=== PATIENT | female | born 1955 | race Caucasian/White ===

== ENCOUNTER 2017-03-14 10:21 | Day surgery (SDC) | payer BC ==
[~2017-03-14] VITALS: Ht 162.6 cm; Wt 89.0 kg
[2017-03-14 10:57] VITALS: Ht 162.6 cm; Wt 89.0 kg
[2017-03-14] MEDS ORDERED: ASPI81TA3 PO (11:26)
[2017-03-14] MEDS ORDERED: TRAMADOL (11:28)
[2017-03-14] MEDS ORDERED: [UNRECOGNIZED DRUG - OTHER] (11:28)
[2017-03-14] MEDS ORDERED: ATEN50TA PO (11:28)
[2017-03-14] MEDS ORDERED: [UNRECOGNIZED DRUG - OTHER] (11:28)
[2017-03-14] MEDS ORDERED: PEPCID DAILY (11:28)
[2017-03-14] MEDS ORDERED: PROPOFOL 20 ML ONE (11:32)
[2017-03-14 11:35] VITALS: BP 133/80; PULSE 70; RESP 18
--- NOTE | 2017-03-14 11:47 | OPPN ---
Date/Time of Note Date/Time of Note DATE: 03/14/17 TIME: 11:46 Proc Note GI Procedure Date 03/14/17 Pre-procedure Diagnosis Dysphagia Post-procedure Diagnosis Dysphagia Procedure Performed: Endoscopy Surgeon see signature line Furnace Caretaker none Anesthesia Type: MAC Tourniquet Time none EBL none Transfusion required none Grafts/Implants none Tubes/Drains none Complication(s) none Disposition: PACU, home Indications: other (Dysphagia) Operative\Procedure Findings EGD with a biopsy Procedure Description EGD with a 4 biopsies for H. pylori infection JAYDON CACERES MD Mar 14, 2017 11:47
[2017-03-14 12:14] VITALS: BP 141/71; PULSE 56; RESP 18
--- NOTE | 2017-03-14 12:21 | GILP ---
DATE OF PROCEDURE: 03/14/2017 INDICATION: A 61-year-old female undergoing this procedure for dysphagia for last one year. The purpose is to evaluate the upper GI tract and find out the cause of her dysphagia. The risks of the procedure, related complications, anesthetic risks and alternatives discussed. Informed consent was obtained. DESCRIPTION OF PROCEDURE: Patient was brought to the GI lab, sedated by the anesthesiologist. After optimal sedation, scope was passed with much ease into the esophagus, which was grossly within normal limits. Z-line was at 35 cm. The Z-line was regular. Stomach mucosa revealed gastritis. Four biopsies obtained randomly to rule out H pylori infection. Duodenum, 1st and 2nd part was within normal limits. Retroversion in the stomach was normal. Scope was straightened out and removed with good patient tolerance. IMPRESSION: 1. Normal esophagus. 2. Normal Z-line at 35 cm. 3. Gastritis. 4. Normal duodenum. PLAN: Review histopathology. Patient's thyroid function needs to be checked for dysphagia and she should be reassured. Dictated By: Segun Gay MD /marco/pari /Document#: [id number]
== END 2017-03-14 15:33 | disposition home or self-care (01) ==
LOC: GIL 10:21
PROVIDERS: ATTEND Internal Medicine Gastroenterology
DX: R13.10 Dysphagia, unspecified (principal); K29.70 Gastritis, unspecified, without bleeding
CPT/HCPCS: 43239; 88305; 88312; Z7610

== ENCOUNTER 2018-10-22 10:56 | Emergency (ER) | payer BC ==
[~2018-10-22] VITALS: Ht 162.6 cm; Wt 87.0 kg
[~2018-10-22 10:56] MED LIST: ASPI-903 PO; ATEN50TA PO; PEPCID DAILY; TRAMADOL; [UNRECOGNIZED DRUG - OTHER]; [UNRECOGNIZED DRUG - OTHER]
[2018-10-22 11:02] VITALS: Ht 162.6 cm; Wt 87.0 kg
[2018-10-22] MEDS ORDERED: MECL-77 PO (16:53)
[2018-10-22] MEDS ORDERED: ERGO500013 PO (16:53)
[2018-10-22] MEDS ORDERED: DILT-8 PO (16:54)
[2018-10-22] MEDS ORDERED: FURO40TA4 PO (16:54)
[2018-10-22] MEDS ORDERED: ASPI-817 PO (16:55)
[2018-10-22] MEDS ORDERED: GABA100C14 PO (16:55)
[2018-10-22] MEDS ORDERED: ZOLP10TA5 PO (16:55)
[2018-10-22] MEDS ORDERED: CARV6.2579 PO (16:56)
[2018-10-22] MEDS ORDERED: LOSA100T15 PO (16:56)
[2018-10-22] MEDS ORDERED: LORA-444 PO (16:57)
[2018-10-22] MEDS ORDERED: OMEP20CA16 PO (16:57)
[2018-10-22] MEDS ORDERED: CLON-379 PO (16:58)
[2018-10-22] MEDS ORDERED: PARO40TA79 PO (16:58)
--- NOTE | 2018-10-22 17:08 | ERD ---
ER Documentation Chief Complaint Chief Complaint swallowing problem x [address] aguirre for admission HPI Patient is a 63-year-old female who presents with difficulty swallowing. The patient was sent by Dr. Cruz for admission. The patient has had trouble swallowing for 2 months. She said that she cannot breathe well at night when she lays down. She had an endoscopy here at [place] [address]. She is n ot able to swallow food or liquids she says. Upon review of old medical records this is the patient's first visit to the emergency department. Her primary doctor is Dr. Cruz. ROS All systems reviewed and are negative except as per history of present illness. Medications Home Meds Reported Medications Clonidine Hcl* (Clonidine Hcl*) 0.1 Mg Tab, 0.1 MG PO NEEDED, TAB 10/22/18 Paroxetine Hcl* (Paroxetine*) 40 Mg Tablet, 40 MG PO HS, TAB 10/22/18 Omeprazole* (Omeprazole*) 20 Mg Capsule.dr, 20 MG PO DAILY, #30 CAP 10/22/18 Lorazepam* (Ativan*) 2 Mg Tablet, 2 MG PO BID PRN for ANXIETY, #30 TAB 10/22/18 Losartan Potassium* (Losartan Potassium*) 100 Mg Tablet, 100 MG PO DAILY, TAB 10/22/18 Carvedilol* (Carvedilol*) 6.25 Mg Tablet, 6.25 MG PO BID, #60 TAB 10/22/18 Gabapentin* (Gabapentin*) 100 Mg Capsule, 100 MG PO BID, #90 CAP 10/22/18 Zolpidem Tartrate* (Zolpidem Tartrate*) 10 Mg Tablet, 10 MG PO QHS PRN for INSOMNIA, #30 TAB 10/22/18 Aspirin* (Aspirin* EC) 81 Mg Tablet.dr, 81 MG PO DAILY, TAB 10/22/18 Diltiazem Hcl (Cardozem Cd) 240 Mg Capsr, 240 MG PO DAILY, CAP 10/22/18 Furosemide* (Furosemide*) 40 Mg Tablet, 40 MG PO DAILY, TAB 10/22/18 Meclizine Hcl* (Meclizine Hcl*) 25 Mg Tablet, 25 MG PO DAILY PRN for DIZZINESS, TAB 10/22/18 Ergocalciferol (Vitamin D2) (VITAMIN D2) 50,000 Unit Capsule, 84780 UNIT PO Q THUR, CAP 10/22/18 Discontinued Reported Medications [Tramadol Daily] No Conflict Check 03/14/17 [Pepcid Daily] No Conflict Check 03/14/17 [Medlavin] No Conflict Check 03/14/17 [Diovan Daily] No Conflict Check 03/14/17 Atenolol* (Atenolol*) 50 Mg Tablet, 50 MG PO DAILY, #30 TAB 03/14/17 Aspirin* (Aspirin* Chew) 81 Mg Tab.chew, 81 MG PO DAILY, TAB.CHEW 03/14/17 Allergies Allergies: Coded Allergies: No Known Drug Allergies (Verified Allergy, Unknown, 10/22/18) PMhx/Soc History of Surgery: Yes (EYE SX.) Anesthesia Reaction: No Hx Neurological Disorder: No Hx Respiratory Disorders: No Hx Cardiac Disorders: Yes (HTN) Hx Psychiatric Problems: No Hx Miscellaneous Medical Probl: No Hx Alcohol Use: No Hx Substance Use: No Hx Tobacco Use: No Smoking Status: Never smoker FmHx Family History: No diabetes Physical Exam Vitals Vital Signs Date Temp Pulse Resp B/P (MAP) Pulse Ox O2 O2 Flow FiO2 Time Delivery Rate 10/22/18 98.2 68 18 166/82 97 11:02 (110) Physical Exam Const: No acute distress Head: Atraumatic Eyes: Normal Conjunctiva ENT: Normal External Ears, Nose and Mouth. Neck: Full range of motion. No meningismus. No stridor Resp: Clear to auscultation bilaterally Cardio: Regular rate and rhythm, no murmurs Abd: Soft, non tender, non distended. Normal bowel sounds Skin: No petechiae or rashes Back: No midline or flank tenderness Ext: No cyanosis, or edema Neur: Awake and alert Psych: Anxious Result Diagram: 10/22/18 1559 10/22/18 1559 Results 24 hrs Laboratory Tests Test 10/22/18 15:53 10/22/18 15:59 Bedside Glucose 90 mg/dL White Blood Count 7.1 10^3/ul Red Blood Count 4.71 10^6/ul Hemoglobin 13.1 g/dl Hematocrit 40.7 % Mean Corpuscular Volume 86.4 fl Mean Corpuscular Hemoglobin 27.8 pg Mean Corpuscular Hemoglobin Concent 32.2 g/dl Red Cell Distribution Width 12.9 % Platelet Count 219 10^3/UL Mean Platelet Volume 11.3 fl Immature Granulocytes % 0.100 % Neutrophils % 65.8 % Lymphocytes % 26.1 % Monocytes % 6.9 % Eosinophils % 0.8 % Basophils % 0.3 % Nucleated Red Blood Cells % 0.0 /100WBC Immature Granulocytes # 0.010 10^3/ul Neutrophils # 4.7 10^3/ul Lymphocytes # 1.9 10^3/ul Monocytes # 0.5 10^3/ul Eosinophils # 0.1 10^3/ul Basophils # 0.0 10^3/ul Nucleated Red Blood Cells # 0.0 10^3/ul Prothrombin Time 12.5 Sec Prothrombin Time Ratio 1.0 INR International Normalized Ratio 0.92 Activated Partial Thromboplast Time 27.2 Sec Sodium Level 143 mmol/L Potassium Level 3.7 mmol/L Chloride Level 105 mmol/L Carbon Dioxide Level 32 mmol/L Anion Gap 6 Blood Urea Nitrogen 11 mg/dl Creatinine 0.56 mg/dl Est Glomerular Filtrat Rate mL/min > 60 mL/min Glucose Level 93 mg/dl Calcium Level 9.5 mg/dl Troponin I < 0.012 ng/ml Triglycerides Level 146 mg/dl Cholesterol Level 201 mg/dl LDL Cholesterol, Calculated 124 mg/dl HDL Cholesterol 48 mg/dl Cholesterol/HDL Ratio 4.1 RATIO Procedures/MDM EKG read by me: Rate/Rhythm: Regular rate and rhythm at a normal rate Intervals: Normal Impression: No evidence of ischemia or arrhythmia CT brain and chest x-ray read by radiology. Patient is a 63-year-old female who presents with difficulty swallowing. A full work-up was done including work-up for stroke. There is no obvious stroke seen on CT scan or laboratory studies or physical exam. At this point I doubt acute stroke. I believe her swallowing difficulties are most likely related to something in the esophagus. Therefore I believe the patient will require admission for GI consultation and endoscopy. She is [facility]itated to [facility]. The patient was accepted by the provider I spoke with over at [place]. She will be transferred via ambulance. Departure Diagnosis: Primary Impression: Swallowing disorder Condition: JADE Waite MD October 22, 2018 17:08
[2018-10-22 20:13] VITALS: BP 166/89; PULSE 84; RESP 20
== END 2018-10-22 20:21 | disposition short-term general hospital (02) ==
LOC: E/R 10:56
DX: R13.10 Dysphagia, unspecified (principal); I10 Essential (primary) hypertension; R07.9 Chest pain, unspecified; R93.0 Abnormal findings on diagnostic imaging of skull and head, not elsewhere classified; Z79.82 Long term (current) use of aspirin
CPT/HCPCS: 36415; 70450; 71045; 80048; 80061; 82962; 83036; 84484; 85025; 85610; 85730; 93005; Z7502